=== PATIENT | male | born 1995 | race African-American/Black ===

== ENCOUNTER 2019-07-09 23:47 | Emergency (ER) | payer SELFPAY ==
[~2019-07-09] VITALS: Ht 180.3 cm; Wt 104.3 kg
[2019-07-10 00:10] VITALS: BP 150/90
--- NOTE | 2019-07-10 01:15 | NUR ---
PT AMBULATED TO BED #7
[2019-07-10 01:22] VITALS: BP 151/86
--- NOTE | 2019-07-10 01:22 | NUR ---
PT ASSESSMENT COMPLETE. PT SEATED UPRIGHT ON BED. BEDRAIL [id number]. WILL CONTINUE TO MONITOR
--- NOTE | 2019-07-10 01:30 | NUR ---
URINE SPECIMEN GIVEN TO LAB.
[2019-07-10] MEDS ORDERED: cefTRIAXone 250 MG in LIDOCAINE MPF 1% 0.9 ML IM ONE (02:20)
[2019-07-10] MEDS ORDERED: AZITHROMYCIN 250 MG TAB PO ONE (02:20)
[2019-07-10] MEDS ORDERED: cefTRIAXone 250 MG VIAL ONE (02:28)
[2019-07-10] MEDS ORDERED: LIDOCAINE MPF 1% 5 ML ONE (02:28)
--- NOTE | 2019-07-10 02:37 | NUR ---
PT MOVED TO CHAY
--- NOTE | 2019-07-10 02:44 | NUR ---
Patient discharged with v/s stable. Written and verbal after care instructions given and explained. Patient verbalized understanding. Ambulatory with steady gait. All questions addressed prior to discharge. Advised to follow up with PMD.
[2019-07-12 06:07] LABS: CHLAMYDIA TRACHOMATIS AMP DNA Negative (Negative)
== END 2019-07-10 02:44 | disposition home or self-care (01) ==
LOC: MED 23:47
DX: A64 Unspecified sexually transmitted disease (principal); I10 Essential (primary) hypertension
CPT/HCPCS: 36415; 87491; 96372; 99283; J0696; J2001